=== PATIENT | male | born 1970 | race Caucasian/White ===

== ENCOUNTER 2022-03-12 14:24 | Outpatient (CLI) | payer BC | END 2022-03-12 14:25 | disposition home or self-care (01) | LOC: CSHMRI 14:24 | PROVIDERS: ATTEND Specialist | DX: M51.17 Intervertebral disc disorders with radiculopathy, lumbosacral region (principal); Q76.49 Other congenital malformations of spine, not associated with scoliosis; M48.07 Spinal stenosis, lumbosacral region | CPT/HCPCS: 72148 ==

== ENCOUNTER 2023-12-17 12:32 | Outpatient (CLI) | payer BC | END 2023-12-17 12:33 | disposition home or self-care (01) | LOC: CSHRAD 12:32 | PROVIDERS: ATTEND Otolaryngology | DX: E04.1 Nontoxic single thyroid nodule (principal); E04.2 Nontoxic multinodular goiter | CPT/HCPCS: 76536 ==

== ENCOUNTER 2024-05-25 14:09 | Outpatient (CLI) | payer BC | END 2024-05-25 14:10 | disposition home or self-care (01) | LOC: CSHULT 14:09 | PROVIDERS: ATTEND Otolaryngology | DX: E04.1 Nontoxic single thyroid nodule (principal); E04.2 Nontoxic multinodular goiter | CPT/HCPCS: 76536 ==

== ENCOUNTER 2025-04-17 08:38 | Outpatient (CLI) | payer BC | END 2025-04-17 08:39 | disposition home or self-care (01) | LOC: CSHSLEEP 08:38 | PROVIDERS: ATTEND Otolaryngology | DX: G47.33 Obstructive sleep apnea (adult) (pediatric) (principal); E66.9 Obesity, unspecified; Z68.24 Body mass index [BMI] 24.0-24.9, adult; R06.83 Snoring | CPT/HCPCS: 95810 ==